=== PATIENT | male | born 2000 | race African-American/Black ===

== ENCOUNTER 2022-09-18 17:12 | Emergency (ER) | payer OTHER ==
[~2022-09-18] VITALS: Ht 185.4 cm; Wt 89.3 kg
[2022-09-18] MEDS ORDERED: FLUORESCEIN OPHTH 1MG STRIP OS ONE (18:20)
[2022-09-18] MEDS ORDERED: TETRACAINE 0.5% OPHTH SOLN 4ML OS ONE (18:20)
[2022-09-18 21:55] VITALS: BP 132/79
== END 2022-09-18 22:20 | disposition home or self-care (01) ==
LOC: M ED 17:12
DX: H21.01 Hyphema, right eye (principal); W50.0XXA Accidental hit or strike by another person, initial encounter; Y92.9 Unspecified place or not applicable; Y93.67 Activity, basketball